=== PATIENT | female | born 2005 | race Caucasian/White ===

== ENCOUNTER 2025-02-03 22:12 | Emergency (ER) | payer SELFPAY ==
[~2025-02-03] VITALS: Ht 162.6 cm; Wt 62.0 kg
[2025-02-03 22:15] VITALS: O2SAT 99
[2025-02-04] MEDS: ACETAMINOPHEN 325MG TABLET PO ONE (00:38)
[2025-02-04 04:15] VITALS: BP 105/55; PULSE 102; RESP 18; TEMP 37.1; O2SAT 99
[2025-02-04] MEDS ORDERED: IBUP-2029 MT (05:35)
== END 2025-02-04 05:00 | disposition home or self-care (01) ==
LOC: ER 22:12
DX: S02.2XXA Fracture of nasal bones, initial encounter for closed fracture (principal); Y08.89XA Assault by other specified means, initial encounter; Y93.89 Activity, other specified; Y92.89 Other specified places as the place of occurrence of the external cause; Y99.8 Other external cause status
CPT/HCPCS: 70486; 99284